=== PATIENT | female | born 1945 | race American Indian/Alaskan Native ===

== ENCOUNTER 2017-10-23 06:55 | Day surgery (SDC) | payer MEDICARE ==
[2017-10-14 14:26] VITALS: BMI 36.8
[2017-10-23] MEDS ORDERED: Propofol 10 mg/ml Inj (20 ML) ONE (08:15)
[2017-10-23] MEDS ORDERED: Sodium Chloride 0.9% 1,000 ML IV SCH (09:15)
[2017-10-23 10:13] VITALS: BP 125/65; PULSE 60; RESP 18; TEMP 98; O2SAT 97
== END 2017-10-23 11:05 | disposition home or self-care (01) ==
LOC: ENDO 06:55
PROVIDERS: ATTEND Specialist
DX: Z12.11 Encounter for screening for malignant neoplasm of colon (principal); K57.30 Diverticulosis of large intestine without perforation or abscess without bleeding; K64.8 Other hemorrhoids
CPT/HCPCS: 45378; J2704; J3010; J7030